=== PATIENT | female | born 1990 | race Two or more races ===

== ENCOUNTER 2016-10-23 00:50 | Observation (INO) | payer MEDICAID | END 2016-10-23 02:25 | disposition home or self-care (01) | DRG 566 | LOC: LDRP 00:50 | PROVIDERS: ADMIT Obstetrics & Gynecology; ATTEND Obstetrics & Gynecology | DX: O62.9 Abnormality of forces of labor, unspecified (principal); O26.893 Other specified pregnancy related conditions, third trimester; M54.5 Low back pain; Z3A.35 35 weeks gestation of pregnancy | CPT/HCPCS: G0378 ×2; 59025; 81002 ==

== ENCOUNTER 2017-06-30 11:54 | Emergency (ER) | payer MEDICAID ==
[~2017-06-30] VITALS: Ht 160 cm; Wt 79.4 kg
[2017-06-30 12:00] VITALS: BP 127/87
[2017-06-30] MEDS ORDERED: KETOROLAC TROMETH 60MG/2ML VIAL IM ONE (13:00)
== END 2017-06-30 13:26 | disposition home or self-care (01) ==
LOC: ER 11:54
DX: J01.10 Acute frontal sinusitis, unspecified (principal)
CPT/HCPCS: 96372; 99283; J1885

== ENCOUNTER 2018-11-29 20:25 | Emergency (ER) | payer MEDICAID ==
[~2018-11-29] VITALS: Ht 160 cm; Wt 86.2 kg
[2018-11-29 21:11] VITALS: BP 123/80
[2018-11-29] MEDS ORDERED: GENTAMICIN OPTH sol 0.3% 5ml EACHEYE ONE (22:30)
[2018-11-29] MEDS ORDERED: ACETAMINOPHEN/CODEINE#3 (300/30mg) TAB PO ONE (22:30)
== END 2018-11-29 22:54 | disposition home or self-care (01) ==
LOC: ER 20:32
DX: H10.9 Unspecified conjunctivitis (principal)